=== PATIENT | female | born 1990 | race Caucasian/White ===

== ENCOUNTER 2020-03-03 17:14 | Observation (INO) | payer OTHER, SELFPAY ==
--- NOTE | ~2020-03-03 | XR_ITS ---
XR abdomen/kub 1V 03/03/2020 18:57 INDICATION: Right flank pain TECHNIQUE: KUB COMPARISON: CT dated 03/03 2020 FINDINGS: Bowel gas pattern is normal. There is no evidence of free air, mass, organomegaly, ascites or obstruction. No abnormal calculi are seen. The bones appear intact. There is an IUD in the pelv is. IMPRESSION: 1: No acute abdominal abnormality identified. Reviewed, dictated and finalized at location A.
--- NOTE | ~2020-03-03 | US_ITS ---
EXAMINATION: US pelvic complete w TV DATE: 03/03/2020 18:46 INDICATION: Right-sided pelvic pain Comparison:CT dated 03/03/2020 TECHNIQUE: Multiple transabdominal and endovaginal sonographic images of the pelvis performed. FINDINGS: The uterus measures 8.2 x 3.1 x 4.8 cm. The endometrial complex measures 5 mm. There is an IUD in the endometrium. The right ovary measures 5.8 x 4.8 x 3.4 cm. There are right ovarian cysts, largest measuring 3.5 cm greatest dimension. No definite arterial flow identified in the right ovary. There is fluid in the pe lvis including the cul-de-sac. No abnormalities are seen in the left adnexa. IMPRESSION: 1. No significant arterial flow identified in the enlarged right ovary which contains multiple cysts measuring up to 3.5 cm. Cannot exclude ovarian torsion. 2: Moderate free fluid in the pelvis. Reviewed, dictated and finalized at location A. IMPRESSION: 1. No significant arterial flow identified in the enlarged right ovary which co ntains multiple cysts measuring up to 3.5 cm. Cannot exclude ovarian torsion. 2: Moderate free fluid in the pelvis.
--- NOTE | ~2020-03-03 | CT_ITS ---
EXAMINATION: CT abdomen pelvis wo con DATE: 03/03/2020 18:40 INDICATION: Abdomen pain for one month TECHNIQUE: Computed tomography (CT) of the abdomen and pelvis was performed without intravenous contr ast. The dose-length product was 1641.34 mGy-cm. Automated exposure control and iterative reconstruct ion technique were employed. COMPARISON: None. FINDINGS: Lung bases unremarkable. Heart size normal. No significant pleural or pericardial effusion. There is ascites of the abdomen and pelvis with mild lower abdominal mesenteric edema. There is an IU D present.. No bowel obstruction. The liver, spleen, pancreas, adrenal glands and kidneys are unremarkable. No hydronephrosis. No free air. No significant vascular abnormality. Few small ileocolic lymph nodes, likely reactive. Normal ap pendix. IMPRESSION: 1. Free fluid in the abdomen and pelvis with mild lower abdominal mesenteric edema. Findings suspicio us for pelvic inflammatory disease or peritonitis. IUD present. Reviewed, dictated and finalized at location A. IMPRESSION: 1. Free fluid in the abdomen and pelvis with mild lower abdominal mesenteric ed iris. Findings suspicious for pelvic inflammatory disease or peritonitis. IUD pr esent.
[2020-03-03 17:30] VITALS: BP 216/131; PULSE 130; RESP 16; TEMP 36.6; O2SAT 98
[2020-03-03 17:54] LABS: Basophils Absolute Auto 0.1 K/mm3 (0.0-0.1); Basophils Percent Auto 0.4 % (0.2-1.2); Eosinophils Absolute Auto 0.2 K/mm3 (0-0.3); Eosinophils Percent Auto 1.1 % (0-4.4); Hematocrit 42.7 % (37.0-47.0); Hemoglobin 14.2 g/dL (12.0-15.0); Immature Granulocyte Absolute 0.16 K/mm3 (0.00-0.031); Immature Granulocyte Percent A 0.9 % (0-0.5); Lymphocytes Absolute Auto 3.08 K/mm3 (0.9-3.2); Lymphocytes Percent Auto 16.6 % (18.3-44.2); Mean Corpuscular HGB Conc 33.3 g/dl (32-36); Mean Corpuscular Volume 78.2 fl (80-100); Mean Platelet Volume 10.4 fl (7.4-10.4); Monocytes Absolute Auto 1.2 K/mm3 (0.1-0.6); Monocytes Percent Auto 6.4 % (2.6-8.5); Neutrophils Absolute Auto 13.8 K/mm3 (1.3-6.7); Neutrophils Percent Auto 74.6 % (45.5-73.1); Platelet Count Result 397 k/mm3 (150-375); Red Blood Count 5.46 M/mm3 (4.2-5.4); Red Cell Distribution Width 12.5 % (11.5-14.5); White Blood Count 18.5 K/mm3 (4.5-10.0)
[2020-03-03] MEDS: SODIUM CHLORIDE 0.9% IV 1,000 ML 999 ML IV CONT (17:55)
[2020-03-03] MEDS: ONDANSETRON INJ 4 MG/2 ML VIAL IV PUSH (17:56)
[2020-03-03] MEDS: FAMOTIDINE 20 MG/2 ML VIAL IV PUSH (17:56)
[2020-03-03 17:58] LABS: Add Urine Microscopic? YES; Appearance Urine Clear (Clear); Bacteria Urine Trace /hpf; Bilirubin Urine Negative (Negative); Blood Urine Negative (Negative); Color Urine Yellow (Yellow); Glucose Urine UA 3+ mg/dL (Negative); Ketones Urine Negative (Negative); Leukocyte Esterase Ur Negative LEU/UL (Negative); Mucus Urine Rare /lpf; Nitrate Urine Negative (Negative); Protein Urine 3+ mg/dL (Negative); Specific Grav Ur 1.022 (1.001-1.035); Squamous Epithelial Cell Urine Few /hpf (Few); Urobilinogen Urine Negative mg/dL (<2.0)
[2020-03-03 18:10] LABS: Alanine Aminotransferase 24 U/L (4-35); Albumin Level 4.2 g/dL (3.5-5.1); Alkaline Phosphatase 73 U/L (38-126); Aspartate Amino Transferase 35 U/L (14-36); Bilirubin,Total 0.9 mg/dL (0.2-1.3); Blood Urea Nitrogen 11 mg/dL (7-17); Calcium 9.4 mg/dL (8.4-10.2); Carbon Dioxide 27 mmol/L (22-30); Chloride 98 mmol/L (98-107); Estimated CRCL calculation 174 ml/min; Estimated Glomerular Filt Rate > 60; Glucose 213 mg/dL (65-105); Potassium 4.1 mmol/L (3.4-5.0); Sodium 135 mmol/L (137-145)
[2020-03-03 19:00] VITALS: BP 181/131; PULSE 112; RESP 20; O2SAT 99
--- NOTE | 2020-03-03 20:02 | ED.ABDPAIN ---
HPI - Abdominal Pain General Chief Complaint: Abdominal Pain Stated Complaint: BACK PAIN, ABD BLOATING Time Seen by Provider: 03/03/20 17:19 Source: patient Mode of arrival: ambulatory Limitations: no limitations History of Present Illness HPI narrative: Patient is a 29-year-old female who presents to emergency department for evaluation of right upper back and flank pain has been present now for the last 10 days that worsened over the last 24 hours. Patient noted intensifying pain off and on that subsides is worse with activity movement and improves with rest. Patient denies fever chills nausea vomiting also noting that she had some vaginal discharge today that is new. Patient notes that there is possibility for STD. Patient presents per private vehicle has not taken anything other than ibuprofen for her symptoms. Patient has not been seen for this complaint Related Data Allergies Allergy/AdvReac Type Severity Reaction Status Date / Time No Known Allergies Allergy Verified 03/03/20 17:29 Review of Systems Review of Systems: All systems reviewed & are unremarkable except as noted in HPI and below PMFSH Surgical History Surgical History History of left oophorectomy History of salpingoophorectomy Social History Social History Smoking status: Never smoker Gender identity (if verbalized by the patient): Female Exam Narrative: Exam Narrative: GENERAL: Well-appearing, obese, and in no acute distress. HEAD: Normocephalic, atraumatic. EYES: PERRLA and EOMI. ENT: Nares clear, no rhinorrhea or epistaxis. Mucous membranes moist. Oropharynx without tonsillar hypertrophy exudate or other lesions. CHEST: Clear to auscultation. No respiratory distress. No wheezes rales or rhonchi HEART: Regular rate and rhythm. No murmur heard. Normal peripheral pulses. ABDOMEN: Soft, tenderness of the right upper abdomen and flank, distended EXTREMITIES: Normal range of motion. No edema. SKIN: Warm, dry, no rash. NEURO: No focal deficits. Alert and oriented x3. Cranial nerves II through XII grossly intact PSYCH: Normal mood and affect. Course Course Emergency Course: Patient in the room resting comfortably aware of case findings treatment plan diagnosis and recommendations of the paid search marketing strategist patient was given medications with improvement resting comfortably in no distress at this time Reevaluation(s) Reevaluation #1: Patient resting doubly in the room in no distress at this time afebrile nontoxic-appearing Date: 03/03/20 Time: 20:06 Consultations Consultation #1: Discussed case in entirety with gynecology who would like the patient to be treated with cefotetan and doxycycline to be admitted to the hospital and will reevaluate the patient initially will be treated for PID and closely followed for improving or worsening scenario Date: 03/03/20 Time: 20:07 Vital Signs Vital signs: Vital Signs Temperature 97.8 F 03/03/20 17:30 Pulse Rate 130 H 03/03/20 17:30 Respiratory Rate 16 03/03/20 17:30 Blood Pressure 216/131 H 03/03/20 17:30 Pulse Oximetry 98 03/03/20 17:30 Temperature 97.8 F 03/03/20 17:30 Pulse Rate 130 H 03/03/20 17:30 Respiratory Rate 16 03/03/20 17:30 Blood Pressure 216/131 H 03/03/20 17:30 Pulse Oximetry 98 03/03/20 17:30 MDM - Abdominal Pain MDM Narrative Medical decision making narrative: Patient in the room at this time with findings concerning for possible torsion given the timeframe it is concerning that the ovary has given the lack of blood flow patient also tested and treated for PID and will be placed in hospital as recommended by gynecology patient aware of this and agreeing to plan patient given IV antibiotics in the emergency department and treated for STDs as well as tested for them Differential Diagnosis Differential diagnosis: Likely abdominal pain,
[2020-03-03] MEDS: metroNIDAZOLE 250 MG TABLET 2000 MG PO (20:24)
[2020-03-03] MEDS: AZITHROMYCIN 250 MG TABLET 1000 MG PO (20:25)
[2020-03-03 20:50] VITALS: BP 171/120; PULSE 115; RESP 20; O2SAT 99
[2020-03-03] MEDS: LACTATED RINGERS 1,000 ML 999 ML IV CONT (21:24)
[2020-03-03] MEDS: cefoTEtan DISODIUM INJ 2 GM in DEXTROSE 5% IN WATER 50 ML IVPB (21:26)
[2020-03-03 21:32] VITALS: BP 156/111; PULSE 104; RESP 20; O2SAT 99
[2020-03-03 22:25] VITALS: BP 148/103; PULSE 103; RESP 18; TEMP 35.8; O2SAT 96; BMI 47.0
--- NOTE | 2020-03-03 22:30 | ADMGEN ---
This patient, Kaitlin Jiménez, was admitted to 2 Medical Room 247-. Patient/family oriented to hospital policies and general routines including ID bracelet, bed and alarms, visiting hours, pain management, procedures, bathroom and other care routines, personal items, smoking policy, room service/diet, and visiting hours. Valuables list has been completed. Information on how to activate the Rapid Response Team has been discussed. Patient/Family are encouraged to report perceived risks to care and to ask questions if they do not understand what they are told or what they should do.
[2020-03-03] MEDS: LACTATED RINGERS 1,000 ML 125 ML IV CONT (22:49)
[2020-03-04 01:29] VITALS: BP 152/111; PULSE 97; RESP 20; TEMP 36.1; O2SAT 96
[2020-03-04 04:00] VITALS: BP 144/80; PULSE 95; RESP 18; TEMP 36.1; O2SAT 100
[2020-03-04] MEDS: LACTATED RINGERS 1,000 ML 125 ML IV CONT (06:26)
[2020-03-04] MEDS: MORPHINE SULFATE 4 MG/ML INJ IV PUSH (06:29)
[2020-03-04] MEDS: ONDANSETRON INJ 4 MG/2 ML VIAL IV PUSH (06:29)
[2020-03-04 07:51] LABS: Basophils Absolute Auto 0.1 K/mm3 (0.0-0.1); Basophils Percent Auto 0.4 % (0.2-1.2); Eosinophils Absolute Auto 0.2 K/mm3 (0-0.3); Eosinophils Percent Auto 1.7 % (0-4.4); Hematocrit 35.1 % (37.0-47.0); Hemoglobin 11.7 g/dL (12.0-15.0); Immature Granulocyte Absolute 0.13 K/mm3 (0.00-0.031); Immature Granulocyte Percent A 1.1 % (0-0.5); Lymphocytes Absolute Auto 2.26 K/mm3 (0.9-3.2); Lymphocytes Percent Auto 19.7 % (18.3-44.2); Mean Corpuscular HGB Conc 33.3 g/dl (32-36); Mean Corpuscular Hemoglobin 25.8 pg (26-34); Mean Corpuscular Volume 77.3 fl (80-100); Mean Platelet Volume 9.8 fl (7.4-10.4); Monocytes Percent Auto 8.5 % (2.6-8.5); Neutrophils Absolute Auto 7.9 K/mm3 (1.3-6.7); Neutrophils Percent Auto 68.6 % (45.5-73.1); Platelet Count Result 324 k/mm3 (150-375); Red Blood Count 4.54 M/mm3 (4.2-5.4); Red Cell Distribution Width 12.3 % (11.5-14.5); White Blood Count 11.5 K/mm3 (4.5-10.0)
[2020-03-04 07:55] LABS: Alanine Aminotransferase 19 U/L (4-35); Albumin Level 3.4 g/dL (3.5-5.1); Alkaline Phosphatase 60 U/L (38-126); Aspartate Amino Transferase 21 U/L (14-36); Bilirubin,Total 0.6 mg/dL (0.2-1.3); Blood Urea Nitrogen 10 mg/dL (7-17); Calcium 8.3 mg/dL (8.4-10.2); Carbon Dioxide 24 mmol/L (22-30); Chloride 102 mmol/L (98-107); Estimated CRCL calculation 151 ml/min; Estimated Glomerular Filt Rate > 60; Glucose 194 mg/dL (65-105); Potassium 3.5 mmol/L (3.4-5.0); Sodium 135 mmol/L (137-145)
[2020-03-04 07:58] VITALS: PULSE 95; RESP 18; O2SAT 100
--- NOTE | 2020-03-04 08:59 | PM.IMHP ---
H&P: HPI History of Present Illness Chief complaint: PID,ovarian cyst, ovarian torsion Narrative: Kaitlin Jiménez is a 29 year old female 0 who presented to the emergency department with severe pelvic pain. It was gradual onset pain over the course of 8 days. The patient has a longstanding history of ovarian cysts. She lost and ovary to a large ovarian cyst on the left. She still has her right ovary. Pain was sharp on her right side. It was constant. Movement was provocative. Nothing is palliative except for pain medication. She denies any nausea, vomiting, fever, chills. The pain has gotten worse over time. She denies any chest pain or shortness of breath. Review of Systems Constitutional: Constitutional: Reports no additional constitutional complaints, Denies fatigue, Denies headache(s), Denies lethargy and Denies weakness Eyes: Eyes: Reports no additional eye complaints, Denies blurry vision and Denies photophobia ENT: Reports as per HPI, Denies headache(s) and Denies neck pain Cardiovascular: Cardiovascular: Denies chest pain, Denies diaphoresis, Denies leg edema, Denies palpitations and Denies dyspnea Respiratory: Respiratory: Denies hemoptysis, Denies dyspnea and Denies wheezing Gastrointestinal: Gastrointestinal: Denies abdominal pain, Denies melena, Denies bloating, Denies hematochezia, Denies nausea and Denies vomiting Genitourinary: Genitourinary: Reports no additional female genitourinary complaints Musculoskeletal: Musculoskeletal: Denies joint swelling, Denies neck pain, Denies numbness and Denies stiffness Neurologic: Denies Abnormal speech present, Denies confusion, Denies headache(s), Denies numbness and Denies weakness Psychiatric: Psychiatric: Denies anxiety, Denies confusion, Denies depression, Denies homicidal ideation and Denies suicidal ideation Endocrine: Endocrine: Denies fatigue and Denies palpitations Allergic/Immunologic: Allergic/Immunologic: Denies wheezing PMFSH Surgical History Surgical History History of left oophorectomy History of salpingoophorectomy Family History Family History (Updated 03/03/20 @ 22:44 by Therese Sharma RN) Mother Hypertension Fatty liver Social History Social History Smoking status: Never smoker Alcohol intake: never Substance use: never Substance use type: does not use Gender identity (if verbalized by the patient): Female Sexual Orientation (if Verbalized by the Patient): Straight or Heterosexual Spiritual care concerns: No Meds Home Medications and Allergies Home Medications Medication Instructions Recorded Confirmed Type hydrochlorothiazide 25 mg PO DAILY 03/03/20 03/03/20 History lisinopril 30 mg PO DAILY 03/03/20 03/03/20 History Allergies Allergy/AdvReac Type Severity Reaction Status Date / Time No Known Allergies Allergy Verified 03/03/20 17:29 Vital Signs Vital Signs - 24 hr 03/03/20 17:30 03/03/20 19:00 03/03/20 20:50 Temperature 97.8 F Pulse Rate 130 H 112 H 115 H Respiratory Rate 16 20 20 Blood Pressure 216/131 H 181/131 H 171/120 H Pulse Oximetry 98 99 99 03/03/20 21:32 03/03/20 22:25 03/04/20 01:29 Temperature 96.5 F L 97 F L Pulse Rate 104 H 103 H 97 Respiratory Rate 20 18 20 Blood Pressure 156/111 H 148/103 H 152/111 H Pulse Oximetry 99 96 96 03/04/20 04:00 03/04/20 07:58 Temperature 97 F L Pulse Rate 95 95 Respiratory Rate 18 18 Blood Pressure 144/80 H Pulse Oximetry 100 100 Exam Const: General: healthy appearing, comfortable and no acute distress; No confusion Orientation/consciousness: No confusion Eyes: Direct Ophthalmoscopy: No photophobia Resp: Auscultation: clear to auscultation bilaterally, no rales, no rhonchi and no wheezes Cardio: Rate: regular rate Heart sounds: no click, no murmurs and no rubs GI: Inspection: no
[2020-03-04 10:00] VITALS: BP 185/92; PULSE 93; RESP 20; TEMP 36.2; O2SAT 96
[2020-03-04] MEDS: FAMOTIDINE 20 MG/2 ML VIAL IV PUSH (10:04)
[2020-03-04] MEDS: cefoTEtan DISODIUM INJ 2 GM in DEXTROSE 5% IN WATER 50 ML IVPB (10:13)
[2020-03-04 13:15] VITALS: BP 154/99; PULSE 101; RESP 18; TEMP 36.4; O2SAT 95
== END 2020-03-04 15:20 | disposition home or self-care (01) ==
LOC: ANHED 20:24 → ANH2MED 03-04 09:08
PROVIDERS: Emergency Medicine Emergency Medical Services; Admitting Provider Obstetrics & Gynecology; Emergency Provider Emergency Medicine; Visit Provider Obstetrics & Gynecology
DX: N83.209 Unspecified ovarian cyst, unspecified side (principal); R10.2 Pelvic and perineal pain
CPT/HCPCS: 36415; 74018; 74176; 76830; 76856; 80053; 81001; 81025; 85025; 86850; 86900; 86901; 87070; 87491; 87591; 87808; 96361; 96365; 96367; 96375; 99285; A9270; G0378; J0131; J2270; J2405; J7030; J7120

== ENCOUNTER 2023-12-02 15:29 | Emergency (ER) | payer OTHER, SELFPAY ==
[2023-12-02 15:35] VITALS: BP 201/139; PULSE 100; RESP 20; TEMP 37.1; O2SAT 99
--- NOTE | 2023-12-02 16:00 | ECG_ITS ---
Measurements Intervals [place] Rate: 97 P: 10 WI: 153 QRS: -11 QRSD: 96 T: 41 QT: 339 AVG RR 613 QTc: 394 QTcB 432 QTcF 399 Interpretive Statements SINUS RHYTHM MINIMAL VOLTAGE CRITERIA FOR LVH, CONSIDER NORMAL VARIANT [MEETS CRITERIA IN ONE OF: R(aVL), S(), R(V5), R(V5/V6)+S()] ANTEROSEPTAL MYOCARDIAL INFARCTION, OF INDETERMINATE AGE [40+ ms Q WAVE IN - V4] ABNORMAL ECG SEE SCANNED COPY FOR SIGNATURE MTDD
[2023-12-02] MEDS: lisinopriL 20 MG TABLET 40 MG PO (16:07)
[2023-12-02] MEDS: hydroCHLOROthiazide 25 MG TABLET PO (16:07)
[2023-12-02 16:08] LABS: Basophils Absolute Auto 0.1 K/mm3 (0.0-0.1); Basophils Percent Auto 0.7 % (0.2-1.2); Eosinophils Absolute Auto 0.5 K/mm3 (0-0.3); Eosinophils Percent Auto 4.2 % (0-4.4); Hematocrit 43.8 % (37.0-47.0); Hemoglobin 14.5 g/dL (12.0-15.0); Immature Granulocyte Absolute 0.05 K/mm3 (0.00-0.031); Immature Granulocyte Percent A 0.5 % (0-0.5); Lymphocytes Absolute Auto 3.54 K/mm3 (0.9-3.2); Lymphocytes Percent Auto 33.1 % (18.3-44.2); Mean Corpuscular HGB Conc 33.1 g/dl (32-36); Mean Corpuscular Hemoglobin 26.4 pg (26-34); Mean Corpuscular Volume 79.8 fl (80-100); Mean Platelet Volume 9.8 fl (7.4-10.4); Monocytes Absolute Auto 0.7 K/mm3 (0.1-0.6); Monocytes Percent Auto 6.5 % (2.6-8.5); Neutrophils Absolute Auto 5.9 K/mm3 (1.3-6.7); Platelet Count Result 276 k/mm3 (150-375); Red Blood Count 5.49 M/mm3 (4.2-5.4); Red Cell Distribution Width 13.3 % (11.5-14.5); White Blood Count 10.7 K/mm3 (4.5-10.0)
[2023-12-02 16:11] VITALS: BP 218/124; PULSE 94; RESP 24; TEMP 36.8; O2SAT 100
[2023-12-02 16:30] VITALS: RESP 24
[2023-12-02 16:45] VITALS: BP 248/133; PULSE 104; RESP 24; O2SAT 100
[2023-12-02 17:10] LABS: Alanine Aminotransferase 22 U/L (6-35); Albumin Level 4.5 g/dL (3.5-5.1); Alkaline Phosphatase 55 U/L (38-126); Anion Gap 10 mmol/L (4-12); Aspartate Amino Transferase 20 U/L (14-36); Bilirubin,Total 0.7 mg/dL (0.2-1.3); Blood Urea Nitrogen 17 mg/dL (7-17); Calcium 9.3 mg/dL (8.4-10.2); Carbon Dioxide 22 mmol/L (22-30); Chloride 106 mmol/L (98-107); Estimated CRCL calculation 120 ml/min; Estimated Glomerular Filt Rate > 60; Glucose 161 mg/dL (65-110); Potassium 3.8 mmol/L (3.4-5.0); Sodium 138 mmol/L (137-145)
[2023-12-02 17:15] VITALS: BP 244/133; PULSE 98; RESP 24; TEMP 36.7; O2SAT 97
--- NOTE | 2023-12-02 17:20 | PC.NURSE ---
Dr. Rodriguez informed pt remains hypertensive. No new orders Pt denies chest pain, h/a or shortness of breath
[2023-12-02 17:21] LABS: Troponin I 0.013 ng/mL (0.000-0.034)
[2023-12-02 17:50] VITALS: BP 192/108; PULSE 92; RESP 18
--- NOTE | 2023-12-02 18:10 | ED.RECABL ---
HPI - Recheck/Abnormal Lab/Rx General Chief Complaint: Recheck/Abnormal Lab/Rx Stated Complaint: ELEVATED BLOOD PRESSURE Time Seen by Provider: 12/02/23 15:46 History of Present Illness HPI narrative: patient's history high blood pressure with strong family history of high blood pressure but ran out of her meds several months ago and has not been taking any since. She has no symptoms whatsoever but was at the clinic for an unrelated issue and they sent her here due to high blood pressure. Related Data Home Medications Medication Instructions Recorded Confirmed hydrochlorothiazide 25 mg tablet 25 mg PO DAILY 03/03/20 03/03/20 lisinopril 30 mg tablet 30 mg PO DAILY 03/03/20 03/03/20 Allergies Allergy/AdvReac Type Severity Reaction Status Date / Time No Known Allergies Allergy Verified 03/03/20 17:29 Review of Systems Review of Systems: CONST: No fever. HEENT: No sore throat C/V: No chest pain RESP: No cough GI: no abdominal pain nausea or vomiting : No dysuria. M/S: No joint pain. SKIN: No rash. NEURO: [No headache or focal numbness or weakness] PSYCH: [No depression] [facility] Surgical History Surgical History History of left oophorectomy History of salpingoophorectomy Family History Family History (Updated 03/03/20 @ 22:44 by Therese Sharma RN) Mother Hypertension Fatty liver Social History Social History Smoking status: Never smoker Alcohol intake: never Substance use: never Substance use type: does not use Gender identity (if verbalized by the patient): Female Sexual Orientation (if Verbalized by the Patient): Straight or Heterosexual Spiritual care concerns: No Exam Narrative: EXAMINATION OF ORGAN SYSTEMS/BODY AREAS: Constitutional: Vital signs per nursing GENERAL:[No acute distress, non-toxic appearing.] HEAD: Normal with no signs of head trauma. EYES: EOMI, conjunctiva normal ENT: Hearing grossly intact LUNGS: Nonlabored breathing. HEART: [Regular rate and rhythm] ABD: [Soft], [nontender to palpation] EXT: Normal range of motion SKIN: [No rashes or lesions.] NEURO: [Alert and oriented x 3. No gross focal sensory or strength deficits.] no facial droop. Normal gait. Normal speech. PSYCH: Normal affect Course Vital Signs Vital signs: Vital Signs Temperature 98.7 F 12/02/23 15:35 Pulse Rate 100 12/02/23 15:35 Respiratory Rate 20 12/02/23 15:35 Blood Pressure 201/139 H 12/02/23 15:35 Pulse Oximetry 99 12/02/23 15:35 Oxygen Delivery Room Air 12/02/23 15:35 Temperature 98.0 F 12/02/23 17:15 Pulse Rate 92 12/02/23 17:50 Respiratory Rate 18 12/02/23 17:50 Blood Pressure 192/108 H 12/02/23 17:50 Pulse Oximetry 97 12/02/23 17:15 Oxygen Delivery Room Air 12/02/23 15:35 MDM - Recheck/Abnormal Lab/Rx MDM Narrative Medical decision making narrative: Patient with asymptomatic hypertension. No signs or symptoms of end organ dysfunction; no chest pain or shortness of breath, neurological deficits, severe headaches, visual disturbance, oliguria, or symptoms of dissection/AAA). Long-term risks of hypertension, especially uncontrolled, were discussed including increased risks of kidney disease, vascular disease, stroke and heart disease. We discussed lifestyle modifications including diet and exercise. I will restart the patient on her lisinopril and hydrochlorothiazide and provide script for short course, patient expressed understanding of the instructions and strongly advised to follow-up with PMD for further management. Lab Data 12/02/23 16:00 12/02/23 16:42 Labs: Lab Results 12/02/23 12/02/23 Range/Units 16:00 16:42 WBC 10.7 H (4.5-10.0) K/mm3 RBC 5.49 H (4.2-5.4) M/mm3 Hgb 14.5 (12.0-15.0) g/dL Hct 43.8 (37.0-47.0) % MCV 79.8 L (80-
== END 2023-12-02 17:51 | disposition home or self-care (01) ==
PROVIDERS: Family Medicine; Emergency Provider Emergency Medicine
DX: I10 Essential (primary) hypertension (principal); T46.4X6A Underdosing of angiotensin-converting-enzyme inhibitors, initial encounter; Z91.128 Patient's intentional underdosing of medication regimen for other reason; Z90.721 Acquired absence of ovaries, unilateral; Z90.79 Acquired absence of other genital organ(s)
CPT/HCPCS: 36415; 80053; 84484; 85025; 93005; 99284; A9270